=== PATIENT | male | born 1995 | race Caucasian/White ===

== ENCOUNTER 2020-06-11 16:56 | Emergency (ER) | payer OTHER ==
[~2020-06-11] VITALS: Ht 175.3 cm; Wt 92.7 kg
[2020-06-11 17:40] LABS: BASO # 0.1 10^3/uL (0.0-0.2); BASO % 0.7 % (0.0-1.0); EOS # 0.1 10^3/uL (0.0-0.5); HEMATOCRIT 43.5 % (42.0-52.0); LYMPH # 1.6 10^3/uL (1.5-5.0); LYMPH % 23.1 % (24.0-44.0); MEAN CORPUSCULAR HEMOGLOBIN 30.3 pg (27.0-33.0); MEAN CORPUSCULAR HGB CONC 34.5 g/dl (32.0-36.5); MEAN CORPUSCULAR VOLUME 87.9 fl (80.0-96.0); MONO # 0.9 10^3/uL (0.0-0.8); NEUTROPHILS # 4.2 10^3/uL (1.5-8.5); NEUTROPHILS % 60.9 % (36.0-66.0); PLATELET COUNT, AUTOMATED 241 10^3/uL (150-450); RED BLOOD COUNT 4.95 10^6/uL (4.30-6.10); WHITE BLOOD COUNT 6.9 10^3/uL (4.0-10.0)
[2020-06-11 17:58] LABS: BLOOD UREA NITROGEN 11 MG/DL (7-18); CREATININE FOR GFR 1.11 MG/DL (0.70-1.30); GLUCOSE, FASTING 91 MG/DL (70-100)
[2020-06-11 17:59] LABS: CALCIUM LEVEL 8.5 MG/DL (8.5-10.1); CARBON DIOXIDE LEVEL 25 MEQ/L (21-32); CHLORIDE LEVEL 108 MEQ/L (98-107); GLOMERULAR FILTRATION RATE > 60.0 (>60); POTASSIUM SERUM 3.5 MEQ/L (3.5-5.1); SODIUM LEVEL 139 MEQ/L (136-145)
[2020-06-11] MEDS ORDERED: NS 1,000 ML IV ONE (19:00)
--- NOTE | 2020-06-11 19:34 | REPVR ---
PROCEDURE INFORMATION: Exam: CT Head Without Contrast Exam date and time: 06/11/2020 7:12 PM Age: 24 years old Clinical indication: Altered mental status/memory loss TECHNIQUE: Imaging protocol: Computed tomography of the head without contrast. Radiation optimization: All CT scans at this facility use at least one of these dose optimization techniques: automated exposure control; mA and/or kV adjustment per patient size (includes targeted exams where dose is matched to clinical indication); or iterative reconstruction. COMPARISON: No relevant prior studies available. FINDINGS: Brain: Normal. No hemorrhage. Unremarkable white matter. No mass effect. Ventricles: Normal. No ventriculomegaly. Bones/joints: Unremarkable. No acute fracture. Sinuses: Visualized sinuses are unremarkable. No fluid levels. Mastoid air cells: Visualized mastoid air cells are well aerated. Soft tissues: Unremarkable. IMPRESSION: No acute intracranial abnormality. Electronically signed by: Joi Major On 06/11/2020 19:33:30 PM
[2020-06-11 19:36] LABS: ACETAMINOPHEN LEVEL < 2.0 UG/ML (10.0-30.0); ALBUMIN 3.9 GM/DL (3.2-5.2); ALT/SGPT 25 U/L (12-78); BILIRUBIN,DIRECT 0.3 MG/DL (0.0-0.2); ETHYL ALCOHOL (ETHANOL) < 0.003 % (0.000-0.010); SALICYLATE LEVEL < 1.7 MG/DL (5.0-30.0); THYROID STIMULATING HORMONE 0.528 uIU/ML (0.358-3.740); TOTAL PROTEIN 7.2 GM/DL (6.4-8.2)
[2020-06-11 20:22] LABS: AMPHETAMINES LEVEL URINE NEGATIVE (NEGATIVE); BARBITURATES URINE NEGATIVE (NEGATIVE); BENZODIAZEPINES URINE NEGATIVE (NEGATIVE); CANNABINOIDS URINE NEGATIVE (NEGATIVE); COCAINE METABOLITE URINE NEGATIVE (NEGATIVE); METHADONE URINE NEGATIVE (NEGATIVE); OPIATES URINE NEGATIVE (NEGATIVE); PHENCYCLIDINE URINE NEGATIVE (NEGATIVE)
[2020-06-11 20:45] VITALS: BP 128/76
--- NOTE | 2020-06-12 08:42 | ECGEPIP ---
[facility] - ED Test Date: 2020-06-11 Pat Name: MEGHAN OSEGUERA Department: Room: - Gender: Male [employer]: : 1995 Requested By: LEEANN Ledesma Order Number: [id number] Reading MD: Ousmane Pagan Measurements Intervals [place] Rate: 70 P: 33 [place]: 115 QRS: 61 QRSD: 94 T: 41 QT: 391 QTc: 423 Interpretive Statements SINUS RHYTHM WITH SHORT OH INTERVAL POOR R WAVE PROGRESSION BENIGN EARLY REPOLARIZATION NO PRIORS FOR COMPARISON Electronically Signed on 06-12-2020 8:42:07 EDT by Ousmane Pagan
== END 2020-06-11 21:06 | disposition home or self-care (01) ==
LOC: M ED 16:56
DX: R20.2 Paresthesia of skin (principal); R42 Dizziness and giddiness
CPT/HCPCS: 70450; 80048; 80076; 80307; 81001; 84443; 85025; 93005; 93041; 94760; 96360; 99285; G0480

== ENCOUNTER → 2022-11-22 | Outpatient (REF) | payer OTHER ==
[2022-11-22 18:50] LABS: GC DNA AMPLIFICATION NEGATIVE (NEGATIVE)
== END ==
LOC: M LAB REF 16:07
PROVIDERS: ATTEND Student in an Organized Health Care Education/Training Program
DX: R31.0 Gross hematuria (principal)

== ENCOUNTER → 2022-12-11 | Outpatient (REF) | payer OTHER ==
[2022-12-11 17:19] LABS: APPEARANCE, URINE MANUAL CLEAR (CLEAR); BILIRUBIN, URINE MANUAL NEGATIVE (NEGATIVE); BLOOD URINE MANUAL POSITIVE (NEGATIVE); COLOR, URINE MANUAL YELLOW (YELLOW); GLUCOSE, URINE (UA) MANUAL NEGATIVE (NEGATIVE); KETONE, URINE MANUAL NEGATIVE (NEGATIVE); LEUKOCYTE ESTERASE, URINE MAN TRACE (NEGATIVE); NITRITE, URINE MANUAL NEGATIVE (NEGATIVE); PROTEIN, URINE MANUAL 2+ mg/dL (NEGATIVE); UROBILINOGEN, URINE MANUAL NORMAL (NORMAL)
[2022-12-11 18:28] LABS: RBC, URINE TNTC /hpf (0-3); SQUAMOUS EPITHELIAL CELL URINE NONE SEEN /hpf (SMALL AMT)
[2022-12-11 18:29] LABS: BACTERIA, URINE SMALL AMOUNT; HYALINE CAST, URINE 0-1 /lpf (0-1)
== END ==
LOC: M SMT 16:48
PROVIDERS: ATTEND Physician Assistant
DX: R31.0 Gross hematuria (principal)

== ENCOUNTER → 2022-12-24 | Outpatient (CLI) | payer OTHER ==
[~2022-12-24] MED LIST: ISOVUE-370 76% 100ML VIAL As Ordered ONE
[2022-12-24 13:19] LABS: BLOOD UREA NITROGEN 15 MG/DL (9-23); CALCIUM LEVEL 8.6 MG/DL (8.5-10.1); CARBON DIOXIDE LEVEL 27 MMOL/L (20-31); CHLORIDE LEVEL 104 MMOL/L (98-107); CREATININE FOR GFR 0.95 MG/DL (0.70-1.30); GLOMERULAR FILTRATION RATE > 60.0 (>60); GLUCOSE, FASTING 87 MG/DL (60-100); POTASSIUM SERUM 4.4 MMOL/L (3.5-5.1); SODIUM LEVEL 138 MMOL/L (136-145)
== END ==
LOC: M RAD 12:10
PROVIDERS: ATTEND Physician Assistant
DX: R31.0 Gross hematuria (principal)